=== PATIENT | female | born 1975 | race Caucasian/White ===

== ENCOUNTER 2021-03-22 23:08 | Emergency (ER) | payer OTHER, SELFPAY ==
--- NOTE | ~2021-03-22 | CT_ITS ---
EXAMINATION: CT brain wo con INDICATION: Headache COMPARISON: None TECHNIQUE: Standard unenhanced head CT. The dose-length product (DLP) was 681.00 mGy-cm. The mA was a djusted according to patient size. Iterative reconstruction technique was employed. FINDINGS: There is no intracranial hemorrhage, acute infarction, or abnormal mass lesion. The ventric les are normal. There is no abnormal mass effect or midline shift. The young-white matter differentiat ion is normal. The basal cisterns are patent. The orbits are normal. The paranasal sinuses, mastoids and calvarium are normal. IMPRESSION: 1. No acute intracranial abnormality. Reviewed, dictated and finalized at location A.
[2021-03-22 23:11] VITALS: BP 163/117; PULSE 97; RESP 16; TEMP 35.7; O2SAT 100
--- NOTE | 2021-03-22 23:30 | PC.NURSE ---
Pt to CT via stretcher
--- NOTE | 2021-03-22 23:35 | ED.GENADULT ---
HPI - General Adult General Chief complaint: Nausea/Vomiting/Diarrhea Stated complaint: Nausea/Headache Time Seen by Provider: 03/22/21 23:15 History of Present Illness HPI narrative: Patient 45-year-old female presents the emergency department with chief complaint of headache and nausea and vomiting. Patient reports about 7 days ago she had her third Covid vaccine and also had her flu shot. Patient states she started developing body aches generalized malaise and then developed a severe headache. Patient states light bothers her eyes reports has had several episodes of nausea and vomiting is been unable to keep fluids down at home. Patient denies abdominal pain does report that she is had some diarrhea with this as well. Patient reports symptoms are not improved by anything Related Data Allergies Allergy/AdvReac Type Severity Reaction Status Date / Time Sulfa (Sulfonamide Allergy Unknown Hives Verified 03/22/21 23:55 Antibiotics) Review of Systems Review of Systems: A 10 system review of systems was completed on the patient and is negative except for what is stated in the HPI. Nursing and ancillary documentation was reviewed. Exam Narrative: GENERAL: Well-appearing, well-nourished, and in no acute distress. HEAD: Normocephalic, atraumatic. EYES: PERRLA and EOMI. ENT: Nares clear, no rhinorrhea or epistaxis. Mucous membranes moist. NECK: Supple. CHEST: Clear to auscultation. No respiratory distress. HEART: Regular rate and rhythm. No murmur heard. Normal peripheral pulses. ABDOMEN: Soft, nontender, nondistended, normal active bowel sounds. EXTREMITIES: Normal range of motion. No edema. SKIN: Warm, dry, no rash. NEURO: No focal deficits. Alert and oriented x3. PSYCH: Normal mood and affect. Course Vital Signs Vital signs: Vital Signs Temperature 35.7 C L 03/22/21 23:11 Pulse Rate 97 03/22/21 23:11 Respiratory Rate 16 03/22/21 23:11 Blood Pressure 163/117 H 03/22/21 23:11 Pulse Oximetry 100 03/22/21 23:11 Temperature 37.1 C 03/22/21 23:52 Pulse Rate 88 03/23/21 00:23 Respiratory Rate 18 03/23/21 00:23 Blood Pressure 152/95 H 03/22/21 23:52 Pulse Oximetry 98 03/23/21 00:23 Medical Decision Making Vital Signs Vital Signs: Vital Signs Temperature 35.7 C L 03/22/21 23:11 Pulse Rate 97 03/22/21 23:11 Respiratory Rate 16 03/22/21 23:11 Blood Pressure 163/117 H 03/22/21 23:11 Pulse Oximetry 100 03/22/21 23:11 Temperature 37.1 C 03/22/21 23:52 Pulse Rate 88 03/23/21 00:23 Respiratory Rate 18 03/23/21 00:23 Blood Pressure 152/95 H 03/22/21 23:52 Pulse Oximetry 98 03/23/21 00:23 Lab Data Result diagrams: 03/23/21 00:14 03/23/21 00:14 Labs: Lab Results 03/23/21 03/23/21 03/23/21 Range/Units 00:14 00:14 00:14 WBC 8.7 (4.5-10.0) K/mm3 RBC 5.04 (4.2-5.4) M/mm3 Hgb 14.7 (12.0-15.0) g/dL Hct 44.5 (37.0-47.0) % MCV 88.3 (80-100) fl MCH 29.2 (26-34) pg MCHC 33.0 (32-36) g/dl RDW 14.3 (11.5-14.5) % Plt Count 268 (150-375) k/mm3 MPV 9.7 (7.4-10.4) fl Immature Gran % (Auto) 0.3 (0-0.5) % Neut % (Auto) 65.6 (45.5-73.1) % Lymph % (Auto) 26.3 (18.3-44.2) % [place] % (Auto) 6.3 (2.6-8.5) % Eos % (Auto) 1.0 (0-4.4) % Baso % (Auto) 0.5 (0.2-1.2) % Lymph # (Auto) 2.29 (0.9-3.2) K/mm3 [place] # (Auto) 0.6 (0.1-0.6) K/mm3 Eos # (Auto) 0.1 (0-0.3) K/mm3 Baso # (Auto) 0.0 (0.0-0.1) K/mm3 Abs Immat Gran (auto) 0.03 (0.00-0.031) K/mm3 Absolute Neuts (auto) 5.7 (1.3-6.7) K/mm3 Absolute Nucleated RBC 0.0 (0.0-0.012) K/mm3 Nucleated RBC % 0.0 (0.0-0.2) % Sodium 138 (137-145) mmol/L Potassium 4.1 (3.4-5.0) mmol/L Chloride 103 (98-107) mmol/L Carbon Dioxide 23 (22-30) mmol/L Anion Gap 12 (8-16) mmol/L BUN 13 (7-17) mg/dL Creatinine 0.70 (0.7-1.0) mg/dL Estim Creat Clear Calc
[2021-03-22 23:52] VITALS: BP 152/95; PULSE 91; RESP 16; TEMP 37.1; O2SAT 98
[2021-03-23] MEDS: SODIUM CHLORIDE 0.9% IV 1,000 ML 999 ML IV CONT (00:08)
[2021-03-23] MEDS: PROCHLORPERAZINE EDISYLATE 10 MG/2 ML VIAL IV PUSH (00:09)
[2021-03-23] MEDS: KETOROLAC 30 MG/ML VIAL (*BKC) IV PUSH (00:10)
[2021-03-23] MEDS: diphenhydrAMINE HCl INJ 50 MG/ML VIAL IV PUSH (00:11)
[2021-03-23 00:23] VITALS: PULSE 88; RESP 18; O2SAT 98
[2021-03-23 00:31] LABS: Basophils Percent Auto 0.5 % (0.2-1.2); Eosinophils Absolute Auto 0.1 K/mm3 (0-0.3); Hematocrit 44.5 % (37.0-47.0); Hemoglobin 14.7 g/dL (12.0-15.0); Immature Granulocyte Absolute 0.03 K/mm3 (0.00-0.031); Immature Granulocyte Percent A 0.3 % (0-0.5); Lymphocytes Absolute Auto 2.29 K/mm3 (0.9-3.2); Lymphocytes Percent Auto 26.3 % (18.3-44.2); Mean Corpuscular Hemoglobin 29.2 pg (26-34); Mean Corpuscular Volume 88.3 fl (80-100); Mean Platelet Volume 9.7 fl (7.4-10.4); Monocytes Absolute Auto 0.6 K/mm3 (0.1-0.6); Monocytes Percent Auto 6.3 % (2.6-8.5); Neutrophils Absolute Auto 5.7 K/mm3 (1.3-6.7); Neutrophils Percent Auto 65.6 % (45.5-73.1); Platelet Count Result 268 k/mm3 (150-375); Red Blood Count 5.04 M/mm3 (4.2-5.4); Red Cell Distribution Width 14.3 % (11.5-14.5); White Blood Count 8.7 K/mm3 (4.5-10.0)
[2021-03-23 00:40] VITALS: TEMP 37.1
[2021-03-23 00:41] LABS: Add Urine Microscopic? YES; Appearance Urine Cloudy (Clear); Bacteria Urine Trace /hpf; Bilirubin Urine Negative (Negative); Blood Urine Negative (Negative); Color Urine Amber (Yellow); Glucose Urine UA Negative (Negative); Ketones Urine 1+ mg/dL (Negative); Leukocyte Esterase Ur Trace LEU/UL (Negative); Mucus Urine Few /lpf; Nitrate Urine Negative (Negative); Protein Urine 1+ mg/dL (Negative); Squamous Epithelial Cell Urine Many /hpf (Few); Urobilinogen Urine Negative mg/dL (<2.0)
[2021-03-23 00:42] LABS: Alanine Aminotransferase 27 U/L (4-35); Albumin Level 4.6 g/dL (3.5-5.1); Alkaline Phosphatase 53 U/L (38-126); Anion Gap 12 mmol/L (8-16); Aspartate Amino Transferase 35 U/L (14-36); Bilirubin,Total 0.7 mg/dL (0.2-1.3); Blood Urea Nitrogen 13 mg/dL (7-17); Calcium 9.4 mg/dL (8.4-10.2); Carbon Dioxide 23 mmol/L (22-30); Chloride 103 mmol/L (98-107); Estimated Glomerular Filt Rate > 60; Glucose 155 mg/dL (65-110); Lipase 76 U/L (23-300); Potassium 4.1 mmol/L (3.4-5.0); Sodium 138 mmol/L (137-145)
[2021-03-23] MEDS: ONDANSETRON INJ 4 MG/2 ML VIAL IV PUSH (01:07)
[2021-03-23 01:22] VITALS: BP 144/92; PULSE 76; RESP 13; O2SAT 100
== END 2021-03-23 01:25 | disposition home or self-care (01) ==
PROVIDERS: Emergency Provider Emergency Medicine
DX: R51.9 Headache, unspecified (principal); R11.2 Nausea with vomiting, unspecified
CPT/HCPCS: 36415; 70450; 80053; 81001; 81025; 83605; 83690; 85025; 96361; 96365; 96375; 99284; J0131; J0780; J1200; J1885; J2405; J7030

== ENCOUNTER 2021-09-10 07:52 | Outpatient (CLI) | payer OTHER, SELFPAY ==
--- NOTE | 2021-09-10 08:03 | ECG_ITS ---
Measurements Intervals [place] Rate: 79 P: 9 WY: 157 QRS: -4 QRSD: 101 T: 6 QT: 385 QTc: 442 Interpretive Statements SINUS RHYTHM NO PREVIOUS ECG AVAILABLE FOR COMPARISON Electronically Signed On 09-10-2021 9:04:25 CDT by Nguyễn Johnson M.D.
[2021-09-10 08:29] LABS: Basophils Absolute Auto 0.1 K/mm3 (0.0-0.1); Basophils Percent Auto 0.7 % (0.2-1.2); Eosinophils Absolute Auto 0.3 K/mm3 (0-0.3); Eosinophils Percent Auto 4.6 % (0-4.4); Hematocrit 40.1 % (37.0-47.0); Hemoglobin 12.8 g/dL (12.0-15.0); Immature Granulocyte Absolute 0.02 K/mm3 (0.00-0.031); Immature Granulocyte Percent A 0.3 % (0-0.5); Lymphocytes Absolute Auto 2.41 K/mm3 (0.9-3.2); Lymphocytes Percent Auto 36.1 % (18.3-44.2); Mean Corpuscular HGB Conc 31.9 g/dl (32-36); Mean Corpuscular Hemoglobin 27.9 pg (26-34); Mean Corpuscular Volume 87.4 fl (80-100); Mean Platelet Volume 10.4 fl (7.4-10.4); Monocytes Absolute Auto 0.6 K/mm3 (0.1-0.6); Monocytes Percent Auto 8.5 % (2.6-8.5); Neutrophils Absolute Auto 3.3 K/mm3 (1.3-6.7); Neutrophils Percent Auto 49.8 % (45.5-73.1); Platelet Count Result 243 k/mm3 (150-375); Red Blood Count 4.59 M/mm3 (4.2-5.4); Red Cell Distribution Width 13.2 % (11.5-14.5); White Blood Count 6.7 K/mm3 (4.5-10.0)
[2021-09-10 08:38] LABS: Anion Gap 7 mmol/L (8-16); Blood Urea Nitrogen 19 mg/dL (7-17); Calcium 8.6 mg/dL (8.4-10.2); Carbon Dioxide 26 mmol/L (22-30); Chloride 102 mmol/L (98-107); Estimated Glomerular Filt Rate > 60; Glucose 317 mg/dL (65-110); Potassium 4.6 mmol/L (3.4-5.0); Sodium 135 mmol/L (137-145)
== END 2021-09-10 07:53 | disposition home or self-care (01) ==
LOC: ANHSURGERY 07:59
PROVIDERS: Anesthesiology; PCP Registered Nurse; Visit Provider Obstetrics & Gynecology
DX: N81.4 Uterovaginal prolapse, unspecified (principal); E11.9 Type 2 diabetes mellitus without complications; I10 Essential (primary) hypertension; Z01.818 Encounter for other preprocedural examination
CPT/HCPCS: 36415; 80048; 85025; 86850; 86900; 86901; 93005

== ENCOUNTER 2021-09-13 04:06 | Day surgery (SDC) | payer OTHER, SELFPAY ==
[2021-09-06 15:06] VITALS: BMI 37.9
--- NOTE | 2021-09-06 15:19 | PC.NURSE ---
Report to the Outpatient Waiting Room, entrance under the green pavilion located off [facility], at time 7:30 on date 09/13/21. OR Time: 9:30. - You and your visitor will be asked a series of questions to screen for COVID 19 for your protection. - A mask is required within the hospital. One visitor will be allowed to accompany the patient into the hospital. Patients visitor will be instructed to remain with patient at all times or leave the building. We will allow the visitor to come back to the postoperative area when patient is ready. Preoperative COVID Testing Requirements: TO BRING COPY OF COVID CARD No COVID Test needed if: (proof is required; if not received patient will have Rapid Test prior to entry) - Patient has received COVID Vaccine at least 14 days prior to procedure date or - Patient has positive COVID test result within last 90 days of surgery date. COVID Test needed if above criteria is not met Patients may have clear liquids (water, carbonated beverages, clear teas, apple juice) until 3 hours prior to surgery (6:30) with a maximum of 20 ounces. - No food from midnight until time of surgery Take the following medications with a SIP of water the morning of surgery: ATENOLOL, BUSPIRONE, DULOXETINE Medications to discontinue per physician: N/A Date to take last dose: N/A Please no make-up, nail belgian, hairspray, perfume, deodorant, or body powder the day of surgery. No jewelry (including any body piercings) or valuables the day of surgery, leave them at home. Please take a shower or bath the night before, or the morning of, surgery with an antibacterial soap. Wear comfortable, loose fitting clothing. - Jewelry must be removed prior to entering the operating room. Rings and piercings that are not removed may be cut off. - The hospital will not accept responsibility for valuables. - Please leave all valuables, including medications, at home the day of surgery. If you are going home after surgery, a licensed tow motor driver must drive you home. - NO public transportation without another adult. - We recommend that an adult stay with you for 24 hours following discharge. - We also recommend that you do not drive, make important decision, drink alcoholic beverages, or take any drugs that were not prescribed by your health care provider for at least 24 hours after your discharge time. Follow any additional instructions given to you from your surgeon. Telephone instructions given to CASSIDY PILLAI and asked if any additional questions and then verbalized understanding. Patient advised to call surgeon office or pre surgery nurse liaison [phone] if any additional questions.
--- NOTE | 2021-09-10 07:55 | P.HP_ITS ---
H&P: HPI History of Present Illness Date/Time: 09/10/21 07:55 46-year-old admitted for hysterectomy bilateral salpingectomy secondary to pelvic pain and heavy bleeding with a prolapsed uterus risks and benefits reviewed including not exclusive of , aspiration pneumonia, bleeding, transfusion, perforation injury to bowel, bladder, ureters, or other internal organs with need for open laparotomy. She received the ACOG handout entitled hysterectomy as well as the de Lynda handout. She had all questions answered and asked to proceed Chief Complaint: Pelvic pain and bleeding with uterine prolapse Review of Systems Review of Systems: All systems reviewed & are unremarkable except as noted in HPI and below [facility] Social History Social History Smoking status: Never smoker Alcohol intake: never Substance use: current Substance use type: marijuana Other substance usage details: EDIBLES Spiritual care concerns: No Meds Home Medications and Allergies Home Medications Medication Instructions Recorded Confirmed Type atenolol 50 mg PO BID 09/06/21 09/06/21 History buspirone 10 mg PO BID 09/06/21 09/06/21 History duloxetine 30 mg PO TID 09/06/21 09/06/21 History metformin 500 mg PO BID 09/06/21 09/06/21 History trazodone 100 mg PO HS 09/06/21 09/06/21 History Allergies Allergy/AdvReac Type Severity Reaction Status Date / Time Sulfa (Sulfonamide Allergy Unknown Hives Verified 09/06/21 15:01 Antibiotics) Exam Const: General: no acute distress Eyes: General: appearance normal, both eyes and all related structures Neck: Neck: supple and no JVD Thyroid: thyroid normal Resp: Effort & Inspection: normal respiratory effort Auscultation: clear to auscultation bilaterally Cardio: Rate: regular rate Rhythm: regular rhythm GI: Inspection: non-distended GI Palp: Yes Soft to palpation, No Tenderness to palpation present (GI) and No Guarding due to palpation present (GI) Auscultation: normal bowel sounds : External Female Exam: normal external appearance Speculum Exam - Vagina: normal appearance of the vagina Speculum Exam - Cervix: normal appearance of the cervix Bimanual exam- vagina & uterus: enlarged and Uterus displaced (Second-degree prolapse noted) Bimanual Exam- Adnexa, other: No adnexal tenderness Skin: General skin exam: no rashes or lesions noted Extrem: General: normal to inspection and no edema Psych: Mental Status: mental status grossly normal Affect: normal affect Assessment and Plan Additional Plan Impression: Pelvic pain bleeding and uterine prolapse with enlarged uterus Plan: Robotic total vaginectomy and bilateral salpingectomy
[2021-09-13] VITALS (13 sets, daily range): BP systolic 111–142; BP diastolic 67–90; PULSE 71–88; RESP 12–19; TEMP 35.9–36.7; O2SAT 93–100; BMI 37.7
--- NOTE | 2021-09-13 07:09 | WPDHPUPDATE1 ---
History and Physical Update Update Date/Time: 09/13/21 07:09 History and Physical has been reviewed, including an updated exam of the patient. There are NO changes in the patient's condition. Risks, benefits, and alternatives have been discussed and questions answered. Patient agrees to proceed with procedure.
--- NOTE | 2021-09-13 08:22 | WPDANESEPPF ---
Anes - Initial Pre Proc Eval Procedure: Operation Date: 09/13/21 09:30 Proposed Procedures p Robotic Assisted Total Vaginal Hysterectomy with Bilateral Salpingectomy - Lázaro Pinto MD Date/Time: 09/13/21 08:22 Surgeon: Lázaro Pinto MD Pre Op Diagnosis: pain, uterine prolapse , irr bleeding Patient Data Age: 46 Gender: F Height: 1.68 m Weight: 106.59 kg Allergies Allergy/AdvReac Type Severity Reaction Status Date / Time Sulfa (Sulfonamide Allergy Unknown Hives Verified 09/06/21 15:01 Antibiotics) Home Medications Medication Instructions Recorded Confirmed Type atenolol 50 mg PO BID 09/06/21 09/06/21 History buspirone 10 mg PO BID 09/06/21 09/06/21 History duloxetine 30 mg PO TID 09/06/21 09/06/21 History metformin 500 mg PO BID 09/06/21 09/06/21 History trazodone 100 mg PO HS 09/06/21 09/06/21 History hydrocodone-acetaminophen 1 tablet PO Q4H PRN #30 tablet 09/13/21 Rx Patient hx anesthesia problems: none Family hx anesthesia problems: none Results Review: All pre-operative results and documents have been reviewed as part of the pre-operative evaluation. [facility] Past Medical History Medical History (Updated 09/13/21 @ 08:23 by Lázaro Isaac MD) Anxiety HTN (hypertension) Morbid obesity Social History Social History Smoking status: Never smoker Alcohol intake: never Substance use: current Substance use type: marijuana Other substance usage details: EDIBLES Living arrangements: alone Spiritual care concerns: No Anes - Eval Final PreProcedure Day of Procedure 09/13/21 08:22 Patient weight: morbidly obese Heart: regular rate and rhythm Lungs: clear to auscultation Airway: Mallampati scale class III Neurological: alert and oriented Last oral intake: >/= 8 hours ASA classification: III Emergent: no Anesthetic plan: proceed Anesthesia type and monitoring: general ETT and standard monitoring Results Review: All pre-operative results and documents have been reviewed as part of the pre-operative evaluation. Informed Consent: The patient's anesthetic plan and its attendant risks and benefits were discussed with the patient/family/POA. Questions were solicited and answers provided to the satisfaction of the patient/family/POA.
[2021-09-13 08:30] LABS: Glucose Point of Care 240 mg/dl (65-105)
[2021-09-13] MEDS: ACETAMINOPHEN 500 MG TABLET 1000 MG PO (08:40)
[2021-09-13] MEDS: KETOROLAC 15 MG/ML VIAL (*BKC) IV PUSH (08:40)
[2021-09-13] MEDS: LACTATED RINGERS 1,000 ML 30 ML IV CONT ×2 (08:58→10:51)
--- NOTE | 2021-09-13 10:40 | W.PM.PROC2 ---
Procedure Note - Detailed Date of Procedure 09/13/21 Pre-op Diagnosis pain, uterine prolapse , irr bleeding Post-op Diagnosis Same Procedure Performed Robotic total vaginal hysterectomy and bilateral salpingectomies Surgeon Lázaro Pinto MD Anesthesia General Indications is a 46-year-old female pelvic pain prolapse Findings prolapsed uterus normal-appearing ovaries and tubes Description of Procedure patient is prepped draped in normal sterile fashion placed in the dorsal lithotomy position. Under excellent general trach anesthesia weighted speculum placed posterior. Anterior lip of the cervix grasped with single-tooth tenaculum and the uterus sounded to 9cm. Serial dilatation with fragmented dilators performed followed by passage of the number 8 FREEDOM and the 3. Cold cup. Next the 16 Swedish catheter was placed in bladder draining clear urine weighted speculum was removed and gloves were changed. A supraumbilical incision made the Veress needle passed in the abdomen. The abdomen filled with CO2 gas to 15mm Hg. The 8mm trocar advanced the abdomen downside visualized without any seen patient placed in Trendelenburg and right left lateral quadrant incisions made. The 8mm trocars advanced under visualization. Right upper quadrant incision made 8mm trocar advanced under direct visualization the robot was undocked. Attention was turned to the developmental training counselor. The left round ligament was grasped, burned, cut. Anteriorly a bladder flap was formed by sharply dissecting the peritoneum and reflecting the bladder caudally away from the cervix and uterus to the opposite round ligament was clamped, burned, cut. Next the left fallopian tube was sharply dissected away from the ovarian complex using monopolar cautery and left attached to its origin at the uterus. This was repeated on the contralateral side to remove the right fallopian tube. The left utero-ovarian ligament was then skeletonized to conserve the left ovary. This was clamped, burned, cut and brought to the level of the previously cut round ligament. In like fashion the utero-ovarian ligament on the right was clamped, burned, cut and the right ovary conserved. The left cardinal broad ligaments were then serially skeletonized clamped burned and cut and brought down the lateral edge of the uterus hugging the cervix and uterus until the uterine vessels could be seen. These were individually clamped, burned, cut. In like fashion cardinal and broad ligaments on the right were serially skeletonized. These were clamped, burned, cut and brought down the lateral edge of the uterus and cervix until the uterine vessels could be seen on the right. These were then individually clamped, burned, cut and excellent blanching was seen. A colpotomy incision was made in the cervix uterus and tubes removed through the vagina the uterus cervix and tubes were brought through the vagina and blood loss estimated 25cc. Vagina closed with continuous running 0V lock from lateral edge to lateral edge back to the midline. Irrigation undertaken to clear and Viola term placed over raw areas. The gas was from the abdomen. The robot was undocked and the incisions closed with 4 Monocryl glue. Patient was awake and went to recovery in satisfactory condition. All instrument correct immediate complications Estimated Blood Loss 25 Drains No Packing No Pathology Yes Complications No immediate complications Condition Stable Disposition PACU
[2021-09-13] MEDS: fentaNYL CITRATE INJ (*CRX) 100 MCG/2 ML VIAL 25 MCG IV PUSH ×4 (11:22→11:49)
--- NOTE | 2021-09-13 11:45 | SUR.PHASEI ---
[address] crews of 1115 [id number], pt currently on metformin but didn't take it this morning will take tonight
--- NOTE | 2021-09-13 12:53 | ADMGEN ---
1243-This patient, Gabrielle Root, was admitted to OB 2nd Floor Room 279-00. Patient/family oriented to hospital policies and general routines including ID bracelet, bed and alarms, visiting hours, pain management, procedures, bathroom and other care routines, personal items, smoking policy, room service/diet, and visiting hours. Information on how to activate the Rapid Response Team has been discussed. Patient/Family are encouraged to report perceived risks to care and to ask questions if they do not understand what they are told or what they should do.
[2021-09-13] MEDS: DEXTROSE 5%/LACTATED RINGERS 1,000 ML 125 ML IV CONT (13:07)
[2021-09-13 13:12] LABS: Glucose Point of Care 272 mg/dl (65-105)
[2021-09-13] MEDS: KETOROLAC 30 MG/ML VIAL (*BKC) IV PUSH (13:17)
[2021-09-13] MEDS: HYDROcodone/acetaminophen (*CRX) 5-325 MG TABLET 1 TAB PO (17:15)
[2021-09-13] MEDS: SIMETHICONE 80 MG TAB.CHEW PO (21:34)
[2021-09-13] MEDS: HYDROcodone/acetaminophen (*CRX) 10-325 MG TABLET 1 TAB PO (21:35)
[2021-09-13] MEDS: IBUPROFEN 600 MG TABLET PO (21:35)
[2021-09-14] MEDS: HYDROcodone/acetaminophen (*CRX) 10-325 MG TABLET 1 TAB PO (00:40)
[2021-09-14] MEDS: SIMETHICONE 80 MG TAB.CHEW PO ×2 (00:40→07:42)
[2021-09-14] MEDS: HYDROcodone/acetaminophen (*CRX) 5-325 MG TABLET 1 TAB PO ×2 (03:40→07:41)
[2021-09-14] MEDS: IBUPROFEN 600 MG TABLET PO (03:40)
[2021-09-14 03:45] VITALS: BP 122/74; PULSE 86; RESP 18; TEMP 36.7
[2021-09-14 05:26] LABS: Basophils Percent Auto 0.3 % (0.2-1.2); Eosinophils Percent Auto 0.1 % (0-4.4); Hematocrit 35.4 % (37.0-47.0); Hemoglobin 11.8 g/dL (12.0-15.0); Immature Granulocyte Absolute 0.02 K/mm3 (0.00-0.031); Immature Granulocyte Percent A 0.2 % (0-0.5); Lymphocytes Absolute Auto 2.05 K/mm3 (0.9-3.2); Lymphocytes Percent Auto 23.5 % (18.3-44.2); Mean Corpuscular HGB Conc 33.3 g/dl (32-36); Mean Corpuscular Hemoglobin 28.4 pg (26-34); Mean Corpuscular Volume 85.3 fl (80-100); Mean Platelet Volume 10.2 fl (7.4-10.4); Monocytes Absolute Auto 0.6 K/mm3 (0.1-0.6); Monocytes Percent Auto 7.2 % (2.6-8.5); Neutrophils Percent Auto 68.7 % (45.5-73.1); Platelet Count Result 226 k/mm3 (150-375); Red Blood Count 4.15 M/mm3 (4.2-5.4); Red Cell Distribution Width 13.2 % (11.5-14.5); White Blood Count 8.7 K/mm3 (4.5-10.0)
--- NOTE | 2021-09-14 06:29 | PM.DS ---
DS: Admitting Diagnosis Discharge Date 09/14/2021 Admitting Diagnosis pelvic pain/ enlarged uterus /uterine prolapse DS: Summary Hospital Course Hospital Course: patient was admitted on 09/13 21 for robotic hysterectomy and bilateral salpingectomies. The procedure was unremarkable. Please see the operative report for full details. The patient's hospital course was unremarkable. She was up, ambulating, eating regular diet, voiding without difficulty, generally without complaints. Time Spent with Patient Time attestation: Total time spent providing and/or coordinating discharge services: Exam Const: General: no acute distress Eyes: General: appearance normal, both eyes and all related structures Neck: Neck: supple and no JVD Thyroid: thyroid normal Resp: Effort & Inspection: normal respiratory effort Auscultation: clear to auscultation bilaterally Cardio: Rate: regular rate Rhythm: regular rhythm GI: Inspection: non-distended GI Palp: Yes Soft to palpation, No Tenderness to palpation present (GI) and No Guarding due to palpation present (GI) Auscultation: normal bowel sounds : General: Yes bladder normal to palpation External Female Exam: normal external appearance Speculum Exam - Vagina: normal vaginal discharge and No vaginal bleeding Speculum Exam - Cervix: nontender Bimanual exam- vagina & uterus: bladder normal to palpation and No Cervical tenderness present OB/external & speculum: No vaginal bleeding Skin: General skin exam: no rashes or lesions noted Extrem: General: normal to inspection and no edema Psych: Mental Status: mental status grossly normal Affect: normal affect DS: Data Data Completed and Pending Pending studies at discharge: Pending at discharge 09/13/21 10:10 Surgical [PTH] Routine Labs on day of discharge: Labs from last 24 hours 09/14/21 09/13/21 09/13/21 03:42 11:12 08:27 WBC 8.7 RBC 4.15 L Hgb 11.8 L Hct 35.4 L MCV 85.3 MCH 28.4 MCHC 33.3 RDW 13.2 Plt Count 226 MPV 10.2 Immature Gran % (Auto) 0.2 Neut % (Auto) 68.7 Lymph % (Auto) 23.5 [place] % (Auto) 7.2 Eos % (Auto) 0.1 Baso % (Auto) 0.3 Lymph # (Auto) 2.05 [place] # (Auto) 0.6 Eos # (Auto) 0.0 Baso # (Auto) 0.0 Abs Immat Gran (auto) 0.02 Absolute Neuts (auto) 6.0 Absolute Nucleated RBC 0.0 Nucleated RBC % 0.0 POC Capillary Glucose 272 H 240 H Discharge Plan Discharge Patient Disposition: Home, Self-Care Stand Alone Forms: General Discharge Instructions Follow-up/Referrals: Lázaro Gonzales MD [Physician] - Discharge Medications: New hydrocodone-acetaminophen 5-325 mg tablet 1 tablet PO Q4H PRN (Reason: pain) Qty: 30 RF: 0 No Action metformin 500 mg Tablet 500 mg PO BID RF: 0 trazodone 100 mg Tablet 100 mg PO HS RF: 0 buspirone 10 mg Tablet 10 mg PO BID RF: 0 atenolol 50 mg Tablet 50 mg PO BID RF: 0 duloxetine 30 mg Capsule,Delayed Release(Dr/Ec) 30 mg PO TID RF: 0
--- NOTE | 2021-09-14 06:32 | PM.GYNPNOP ---
[employer] - A/P Postoperative Procedures: Procedures Operation Date: 09/13/21 09:30 Actual Procedure Side Surgeon p Robotic Assisted Total Vaginal Hysterectomy with Bilateral Salpingectomy Not Applicable Lázaro Pinto MD Postoperative day: 1 Postoperative status: doing well Postoperative plan: routine post-op care, advance diet and discharge Time Spent With Patient Time: Total time spent is greater than 50% in coordination of care (as documented) at patient's floor/unit and/or counseling patient: Time with patient: less than 15 minutes [employer]- PN:Subj Post-Op Subjective Date/time seen: 09/14/21 06:32 Subjective: patient desires discharge and pain is well controlled Review of Systems Review of Systems: All systems reviewed & are unremarkable except as noted in HPI and below Exam Const: General: no acute distress Eyes: General: appearance normal, both eyes and all related structures Neck: Neck: supple and no JVD Thyroid: thyroid normal Resp: Effort & Inspection: normal respiratory effort Auscultation: clear to auscultation bilaterally Cardio: Rate: regular rate Rhythm: regular rhythm GI: Inspection: non-distended GI Palp: Yes Soft to palpation, No Tenderness to palpation present (GI) and No Guarding due to palpation present (GI) Auscultation: normal bowel sounds Skin: General skin exam: no rashes or lesions noted Extrem: General: normal to inspection and no edema Psych: Mental Status: mental status grossly normal Affect: normal affect [employer] - PN: Obj Data Vital Signs Vital Signs: Vital Signs - 24 hr 09/13/21 08:53 09/13/21 10:55 09/13/21 11:10 Temperature 96.7 F L 97 F L Pulse Rate 85 88 75 Respiratory Rate 14 19 18 Blood Pressure 131/90 142/76 H 127/74 Pulse Oximetry 100 95 97 09/13/21 11:25 09/13/21 11:40 09/13/21 11:55 Temperature Pulse Rate 77 76 73 Respiratory Rate 15 14 12 Blood Pressure 121/80 111/67 115/69 Pulse Oximetry 98 93 94 09/13/21 12:12 09/13/21 12:25 09/13/21 13:00 Temperature 98.1 F Pulse Rate 75 71 77 Respiratory Rate 14 15 16 Blood Pressure 122/73 120/70 118/69 Pulse Oximetry 95 94 97 09/13/21 17:00 09/13/21 17:20 09/13/21 19:00 Temperature 97.6 F 98.1 F Pulse Rate 86 86 79 Respiratory Rate 18 18 18 Blood Pressure 126/85 127/78 Pulse Oximetry 98 98 09/13/21 23:00 09/14/21 03:45 Temperature 97.8 F 98.1 F Pulse Rate 78 86 Respiratory Rate 18 18 Blood Pressure 114/72 122/74 Pulse Oximetry Intake/Output Intake/Output: Intake & Output 09/11/21 09/12/21 09/13/21 09/14/21 23:59 23:59 23:59 23:59 Intake Total 7040 Output Total 1850 Balance 5190 Meds/Results Medications: Active Medications Generic Name Dose Route Start Last Admin Trade Name Freq PRN Reason Stop Dose Admin Hydrocodone Bitart/Acetaminophen 1 tab 09/13/21 12:35 09/14/21 03:40 Hydrocodone/Acetaminophen (*Crx) 5-325 Mg Tablet PO 1 tab Q3H PRN Administration Pain Rated 5 or Less Hydrocodone Bitart/Acetaminophen 1 tab 09/13/21 12:35 09/14/21 00:40 Hydrocodone/Acetaminophen (*Crx) 10-325 Mg Tablet PO 1 tab Q3H PRN Administration Pain Rated 6 or Greater Docusate Sodium 100 mg 09/13/21 17:00 09/13/21 17:16 Docusate Sodium 100 Mg Capsule PO Not Given BID [facility] Enoxaparin Sodium 40 mg 09/14/21 09:00 Enoxaparin 40 Mg/0.4 Ml Syringe SUB-Q DAILY [facility] Ibuprofen 600 mg 09/13/21 12:35 09/14/21 03:40 Ibuprofen 600 Mg Tablet PO 600 mg Q6H PRN Administration Cramping Ketorolac Tromethamine 30 mg 09/13/21 12:35 09/13/21 13:17 Ketorolac 30 Mg/Ml Vial (*Bkc) IV PUSH 09/18/21 12:34 30 mg Q6H PRN Administration Pain Rated 4-6 Naloxone HCl 0.1 mg 09/13/21 12:35 Naloxone Hcl 0.4 Mg/Ml Vial IV PUSH Q2M PRN Respiratory rate less than 10 Ondansetron HCl 4 mg 09/13/21 12:35 Ondansetron Inj 4 Mg/2 Ml Vial IV PUSH Q6H PRN Nausea And Vomiting Simethicone 80 mg
[2021-09-14 07:30] VITALS: BP 145/87; PULSE 72; RESP 20; TEMP 36.5
--- NOTE | 2021-09-14 07:36 | P.PNAN_ITS ---
Anes - Prog Note Post-Op Date/Time: 09/14/21 07:36 Cardiovascular status: normal Respiratory status: normal Airway patency: baseline Mental status: baseline Post-Op hydration status: normal Vital Signs: Last Vital Signs Temp 36.7 C 09/14/21 03:45 Pulse 86 09/14/21 03:45 Resp 18 09/14/21 03:45 BP 122/74 09/14/21 03:45 Pulse Ox 98 09/13/21 17:20 Pain Score (VAS): 3 I/O: Intake & Output 09/13/21 09/13/21 09/14/21 15:59 23:59 07:59 Intake Total 1500 5540 Output Total 150 1700 Balance 1350 3840 Laboratory Tests 09/14/21 03:42 09/13/21 09/13/21 09/14/21 08:27 11:12 03:42 WBC 8.7 RBC 4.15 L Hgb 11.8 L Hct 35.4 L MCV 85.3 MCH 28.4 MCHC 33.3 RDW 13.2 Plt Count 226 MPV 10.2 Immature Gran % (Auto) 0.2 Neut % (Auto) 68.7 Lymph % (Auto) 23.5 [place] % (Auto) 7.2 Eos % (Auto) 0.1 Baso % (Auto) 0.3 Lymph # (Auto) 2.05 [place] # (Auto) 0.6 Eos # (Auto) 0.0 Baso # (Auto) 0.0 Abs Immat Gran (auto) 0.02 Absolute Neuts (auto) 6.0 Absolute Nucleated RBC 0.0 Nucleated RBC % 0.0 POC Capillary Glucose 240 H 272 H Post-procedural complaints: none Patient Feedback: Patient satisfied with anesthetic care.
[2021-09-14] MEDS: ENOXAPARIN 40 MG/0.4 ML SYRINGE SUB-Q (07:40)
[2021-09-14] MEDS: DOCUSATE SODIUM 100 MG CAPSULE PO (07:41)
== END 2021-09-14 09:25 | disposition home or self-care (01) ==
LOC: ANHSURGERY 07:21 → ANHOB2 12:41
PROVIDERS: PCP Registered Nurse; Visit Provider Obstetrics & Gynecology
PROC: (CPT 58552; principal; 2021-09-13 09:30)
DX: N81.4 Uterovaginal prolapse, unspecified (principal); R10.2 Pelvic and perineal pain; N80.0 Endometriosis of uterus; D25.1 Intramural leiomyoma of uterus; N93.9 Abnormal uterine and vaginal bleeding, unspecified; I10 Essential (primary) hypertension; F41.9 Anxiety disorder, unspecified; Z79.84 Long term (current) use of oral hypoglycemic drugs; E66.01 Morbid (severe) obesity due to excess calories; Z68.37 Body mass index [BMI] 37.0-37.9, adult; F12.90 Cannabis use, unspecified, uncomplicated
CPT/HCPCS: 58552; S2900; 36415; 80048; 82948; 85025; 86850; 86900; 86901; 88307; 93005; 99199; A9270; J0330; J1100; J1650; J1885; J2250; J2270; J2405; J2704; J3010; J7030; J7120; J7121